=== PATIENT | female | born 1955 | race African-American/Black ===

== ENCOUNTER 2019-05-13 14:30 | Outpatient (CLI) | payer OTHER ==
--- NOTE | 2019-05-13 14:50 | RAD ---
2 VIEWS LEFT KNEE: Date: 05/13/19 HISTORY: Disability evaluation. FINDINGS: There is tricompartment osteophytosis with prominent osteophytes at the patellofemoral joint. There i s mild narrowing of the medial and lateral joint compartments. No fracture at this location is identi fied, but there does appear to be slight lateral subluxation of the tibia in relation to the femoral condyles. There is a superior patellar enthesophyte identified. Metallic densities overlie the left f ibula on the lateral projection, which are not seen on the frontal projection and probably related to overlying artifact. IMPRESSION: Osteoarthritis. POS: RACHANA
--- NOTE | 2019-05-13 15:09 | RAD ---
LUMBAR SPINE 3 VIEWS: Date: 05/13/19 HISTORY: Low back pain. Disability evaluation. FINDINGS: Multilevel degenerative changes are present. No fracture, subluxation, or bony destruction seen. IMPRESSION: Lumbar spondylosis. POS: MARCO A
== END 2019-05-13 14:31 | disposition home or self-care (01) ==
LOC: NAV RAD 14:30
PROVIDERS: ATTEND Family Medicine
DX: Z02.71 Encounter for disability determination (principal); M54.5 Low back pain; M17.12 Unilateral primary osteoarthritis, left knee; M47.816 Spondylosis without myelopathy or radiculopathy, lumbar region
CPT/HCPCS: 72100